=== PATIENT | male | born 1990 | race African-American/Black ===

== ENCOUNTER 2022-03-07 16:53 | Emergency (ER) | payer MEDICAID ==
[~2022-03-07] VITALS: Ht 188 cm; Wt 77.0 kg
[2022-03-07 17:04] VITALS: BP 116/69
[2022-03-07] MEDS ORDERED: ACETAMINOPHEN 325MG TABLET PO ONE (19:15)
[2022-03-07] MEDS ORDERED: TOPUD PO (19:29)
== END 2022-03-07 19:45 | disposition home or self-care (01) ==
LOC: ER 16:53
DX: M25.552 Pain in left hip (principal)
CPT/HCPCS: 72170; 99283